=== PATIENT | male | born 1955 | race Native Hawaiian/Other Pacific Islander ===

== ENCOUNTER 2018-12-04 09:48 | Emergency (ER) | payer OTHER, BC ==
[~2018-12-04] VITALS: Ht 182.9 cm; Wt 96.6 kg
[2018-12-04 09:55] VITALS: TEMP 97.9
[2018-12-04] MEDS ORDERED: SIMV20TA2 PO (09:59)
[2018-12-04] MEDS ORDERED: ASPIR-8181 MG PO (09:59)
[2018-12-04] MEDS ORDERED: METO-837 PO (10:00)
[2018-12-04] MEDS ORDERED: AMBIEN5 MG PO (10:01)
[2018-12-04] MEDS ORDERED: FURO20TA67 PO (10:01)
[2018-12-04] MEDS ORDERED: MOBIC7.5 M1 PO (10:02)
[2018-12-04] MEDS ORDERED: POT CHLORIDE10 MEQ PO (10:02)
[2018-12-04] MEDS ORDERED: TRILIPIX45 MG PO (10:03)
[2018-12-04] MEDS ORDERED: TIZANIDINE HYDRO4 MG PO (10:04)
[2018-12-04] MEDS ORDERED: TESTOST CYP200 MG/ML IM (10:04)
[2018-12-04] MEDS ORDERED: METH4PAK3 PO (10:05)
[2018-12-04 10:40] VITALS: BP 140/78
== END 2018-12-04 10:40 | disposition home or self-care (01) ==
LOC: ED 09:48
DX: S46.811A Strain of other muscles, fascia and tendons at shoulder and upper arm level, right arm, initial encounter (principal); S39.012A Strain of muscle, fascia and tendon of lower back, initial encounter
CPT/HCPCS: 96372; 99282; J1885

== ENCOUNTER 2021-09-21 08:57 | Outpatient (CLI) | payer BC ==
[~2021-09-21 08:57] MED LIST: AMBIEN5 MG PO; ASPIR-8181 MG PO; FURO20TA67 PO; METH4PAK3 PO; METO-837 PO; MOBIC7.5 M1 PO; POT CHLORIDE10 MEQ PO; SIMV20TA2 PO; TESTOST CYP200 MG/ML IM; TIZANIDINE HYDRO4 MG PO; TRILIPIX45 MG PO
[2021-09-21 09:33] LABS: PLATELET COUNT 181 K/uL (142-355)
[2021-09-21 09:52] LABS: POTASSIUM 4.5 mmol/L (3.6-5.2)
== END 2021-09-21 19:01 | disposition home or self-care (01) ==
LOC: LABW 08:57
PROVIDERS: ATTEND Internal Medicine Cardiovascular Disease
DX: Z79.899 Other long term (current) drug therapy (principal)
CPT/HCPCS: 36415; 80053; 80061; 85027

== ENCOUNTER 2022-07-18 11:12 | Outpatient (CLI) | payer BC | END 2022-07-18 19:53 | disposition home or self-care (01) | LOC: RAD 11:12 | PROVIDERS: ATTEND Internal Medicine | DX: M54.2 Cervicalgia (principal) ==

== ENCOUNTER → 2022-09-10 | Outpatient (CLI) | payer BC | LOC: LABW 11:32 | PROVIDERS: ATTEND Podiatrist | DX: M10.072 Idiopathic gout, left ankle and foot (principal) | CPT/HCPCS: 36415; 84550; 86140 ==

== ENCOUNTER 2022-09-21 09:44 | Outpatient (CLI) | payer BC | END 2022-09-21 19:13 | disposition home or self-care (01) | LOC: LABW 09:44 | PROVIDERS: ATTEND Podiatrist | DX: B35.1 Tinea unguium (principal) | CPT/HCPCS: 36415; 84450; 84460 ==